=== PATIENT | female | born 1980 | race Caucasian/White ===

== ENCOUNTER 2022-09-09 01:11 | Emergency (ER) | payer MEDICAID ==
[~2022-09-09] VITALS: Ht 167.6 cm; Wt 63.5 kg
[2022-09-09 01:20] VITALS: BP_SYST 116
--- NOTE | 2022-09-09 01:20 | NUR ---
Patient triaged and placed in waiting room. VSS and patient appears in no acute distress at this time. Accompanied by friend, awaiting available bed, and MD notified of need for MSE.
--- NOTE | 2022-09-09 02:54 | NUR ---
Patient to ER bed 1 to gown for evaluation. Side rails up.
--- NOTE | 2022-09-09 02:55 | NUR ---
ESTRELLA Lee at bedside examining patient.
[2022-09-09] MEDS ORDERED: NAPR-686 PO (03:27)
[2022-09-09] MEDS ORDERED: HYDR-3917 PO (03:27)
--- NOTE | 2022-09-09 03:40 | NUR ---
Walking boot applied to her left foot.Pt tolerated well.
--- NOTE | 2022-09-09 03:46 | NUR ---
Patient given written and verbal discharge instructions and verbalizes understanding. ER MD discussed with patient the results and treatment provided. Patient in stable condition. ID arm band removed. Rx of [place] and Naprosyn given. Patient educated on pain management and to follow up with PMD. Pain Scale 5/10. Opportunity for questions provided and answered. Medication side effect fact sheet provided.
[2022-09-09 03:47] VITALS: BP_SYST 116
== END 2022-09-09 03:47 | disposition home or self-care (01) ==
LOC: SED 01:11
DX: S96.911A Strain of unspecified muscle and tendon at ankle and foot level, right foot, initial encounter (principal); Z88.1 Allergy status to other antibiotic agents; Z79.899 Other long term (current) drug therapy; W19.XXXA Unspecified fall, initial encounter; Y93.89 Activity, other specified; Y92.89 Other specified places as the place of occurrence of the external cause; Y99.8 Other external cause status
CPT/HCPCS: 99283

== ENCOUNTER 2023-05-01 10:21 | Emergency (ER) | payer MEDICAID ==
[~2023-05-01] VITALS: Ht 167.6 cm; Wt 65.8 kg
[~2023-05-01 10:21] MED LIST: HYDR-3917 PO; NAPR-686 PO
[2023-05-01 10:35] VITALS: BP_SYST 117
[2023-05-01] MEDS ORDERED: PRED20TA PO (11:39)
[2023-05-01] MEDS ORDERED: VIS25 PO (11:39)
[2023-05-01 11:51] VITALS: BP_SYST 117
== END 2023-05-01 11:52 | disposition home or self-care (01) ==
LOC: SED 10:21
DX: R06.02 Shortness of breath (principal); R51.9 Headache, unspecified; R11.0 Nausea; Z88.1 Allergy status to other antibiotic agents; Z79.899 Other long term (current) drug therapy
CPT/HCPCS: 71045; 99283